=== PATIENT | male | born 1970 | race Caucasian/White ===

== ENCOUNTER 2024-10-17 09:28 | Emergency (ER) | payer MEDICAID, OTHER ==
[~2024-10-17] VITALS: Ht 177.8 cm; Wt 62.6 kg
[2024-10-17] MEDS ORDERED: BACI/NEOM/POLY B OINT PKT 1 UDPKT PACKET ONE (10:02)
[2024-10-17] MEDS: BACI/NEOM/POLY B OINT PKT 1 UDPKT PACKET TP ONE (10:08)
[2024-10-17] MEDS ORDERED: SULF1TAB48 PO (10:26)
[2024-10-17] MEDS ORDERED: CEPH-570 PO (10:26)
[2024-10-17 10:49] VITALS: BP 134/77; TEMP 98; O2SAT 97
== END 2024-10-17 10:49 | disposition home or self-care (01) ==
LOC: ER 09:36
DX: R00.2 Palpitations (principal); F17.200 Nicotine dependence, unspecified, uncomplicated; I49.3 Ventricular premature depolarization; I83.029 Varicose veins of left lower extremity with ulcer of unspecified site; L97.929 Non-pressure chronic ulcer of unspecified part of left lower leg with unspecified severity; L08.9 Local infection of the skin and subcutaneous tissue, unspecified; Z59.00 Homelessness unspecified
CPT/HCPCS: 99283; 93005; A6403